=== PATIENT | female | born 1990 | race Caucasian/White ===

== ENCOUNTER 2017-12-27 06:30 | Day surgery (SDC) | payer MEDICAID ==
[2017-12-23 15:16] LABS: BASOPHILS % (AUTO) 0.6 % (0-1); EOSINOPHILS # (AUTO) 0.1 X10'3 (0-0.9); EOSINOPHILS % (AUTO) 1.4 % (0-6); LYMPHOCYTES # (AUTO) 2.2 X10'3 (1.1-4.8); LYMPHOCYTES % (AUTO) 29.8 % (21-51); MEAN CORPUSCULAR HEMOGLOBIN 31.8 PG (27.0-31.0); MEAN CORPUSCULAR HGB CONC 34.4 % (33.0-36.5); MEAN CORPUSCULAR VOLUME 92.7 FL (78-98); MEAN PLATELET VOLUME 8.9 FL (7.4-10.4); MONOCYTES # (AUTO) 0.6 X10'3 (0-0.9); NEUTROPHILS # (AUTO) 4.5 X10'3 (1.8-7.7); NEUTROPHILS % (AUTO) 60.2 % (42-75); PRE OP HEMOGLOBIN 13.4 g/dL (12.0-16.0); PRE OP PLATELET COUNT 203 X10'3 (140-440); RED BLOOD COUNT 4.21 X10'6 (4.20-5.60); RED CELL DISTRIBUTION WIDTH 13.8 % (11.5-14.5)
[2017-12-23 15:43] LABS: HCG SERUM QL NEGATIVE
[2017-12-27] VITALS (8 sets, daily range): BP systolic 114–188; BP diastolic 74–83
[~2017-12-27] VITALS: Ht 170.2 cm; Wt 75.3 kg
[~2017-12-27 06:30] MED LIST: Cefazolin 2GM/50ML dext iso,osmotic IVPB IV ONE; PREN1TAB75 PO; famotidine 20mg tablet PO ONE; ringers solution, lacted 1,000 ML IV SCH
[2017-12-27] MEDS ORDERED: BUPIVAcaine/PF 2.5mg/ml (0.25%) 10ml vial ONE (06:42)
[2017-12-27] MEDS ORDERED: sevoflurane 250ml liquid IH ONE (08:11)
[2017-12-27] MEDS ORDERED: fentaNYL/PF 50MCG/1 ML 2ML syringe ONE (08:13)
[2017-12-27] MEDS ORDERED: midazolam 2 mg/2 ml injection ONE (08:13)
[2017-12-27] MEDS ORDERED: propofol inj 20 ML IV ONE (08:15)
[2017-12-27] MEDS ORDERED: ondansetron/PF 4mg/2ml inj ONE (08:23)
[2017-12-27] MEDS ORDERED: rocuronium 10mg/ml inj IV ONE (08:23)
[2017-12-27] MEDS ORDERED: dexamethasone sod phosphate 4mg/ml inj. ONE (08:24)
[2017-12-27] MEDS ORDERED: epiNEPHrine 1 mg/ml inj SQ ONE (08:35)
[2017-12-27] MEDS ORDERED: ringers solution, lacted 1,000 ML IV SCH (08:39)
[2017-12-27] MEDS ORDERED: proCHLORperazine 10 MG/2 ml inj IV PRN (08:40)
[2017-12-27] MEDS ORDERED: meperidine/PF 25mg/ml syringe IV PRN ×3 (08:40)
[2017-12-27] MEDS ORDERED: ondansetron/PF 4mg/2ml inj IV PRN (08:40)
[2017-12-27] MEDS ORDERED: morphine 4 MG/ML inj SYRINge IV PRN ×2 (08:40)
[2017-12-27] MEDS ORDERED: neostigmine methylsulfate 1 MG/ML 10ml vial ONE (08:49)
[2017-12-27] MEDS ORDERED: glycopyrrolate 0.2mg/ml inj ONE (08:49)
[2017-12-27] MEDS ORDERED: HYDROcodone/acetaminophen 5mg/325mg tablet PO PRN (09:25)
== END 2017-12-27 10:02 | disposition home or self-care (01) ==
LOC: PAS 06:30
PROVIDERS: ATTEND Obstetrics & Gynecology
DX: Z30.2 Encounter for sterilization (principal); J45.998 Other asthma; Z72.0 Tobacco use; Z98.890 Other specified postprocedural states; Z79.899 Other long term (current) drug therapy; Z72.89 Other problems related to lifestyle
CPT/HCPCS: 36415; 58670; 84703; 85025; A6258; A6402; J0171; J0690; J1100; J2175; J2250; J2405; J2704; J2710; J3010; J3490; J7120; A7000

== ENCOUNTER 2018-07-20 22:25 | Emergency (ER) | payer MEDICAID ==
[~2018-07-20] VITALS: Ht 170.2 cm; Wt 65.0 kg
[~2018-07-20 22:25] MED LIST changes: -Cefazolin 2GM/50ML dext iso,osmotic IVPB IV ONE; -famotidine 20mg tablet PO ONE; -ringers solution, lacted 1,000 ML IV SCH
[2018-07-20 22:29] VITALS: BP 133/51
[2018-07-20] MEDS ORDERED: mag hydrox/Alum hydrox/simeth 30ml oral suspension PO ONE ×2 (22:45→22:55)
[2018-07-20] MEDS ORDERED: famotidine 20mg tablet PO ONE (22:55)
[2018-07-20] MEDS ORDERED: LIDOcaine Viscous 15ml cup MM PRN (22:55)
[2018-07-20] MEDS ORDERED: FAMO-128 PO (23:44)
== END 2018-07-21 00:07 | disposition home or self-care (01) ==
LOC: ER 22:26
DX: K29.00 Acute gastritis without bleeding (principal); Z90.710 Acquired absence of both cervix and uterus
CPT/HCPCS: 99284

== ENCOUNTER 2021-09-01 13:14 | Emergency (ER) | payer MEDICAID ==
[~2021-09-01] VITALS: Ht 170.2 cm; Wt 59.0 kg
[~2021-09-01 13:14] MED LIST changes: +FAMO-128 PO
[2021-09-01 13:55] LABS: BASOPHILS % (AUTO) 0.2 % (0-1); EOSINOPHILS % (AUTO) 0.2 % (0-6); HEMATOCRIT 40.7 % (35.0-45.0); HEMOGLOBIN 13.6 g/dl (12.0-16.0); LYMPHOCYTES # (AUTO) 1.7 X10'3 (1.1-4.8); LYMPHOCYTES % (AUTO) 20.8 % (21-51); MEAN CORPUSCULAR HEMOGLOBIN 31.7 PG (27.0-31.0); MEAN CORPUSCULAR HGB CONC 33.4 g/dL (33.0-36.5); MEAN CORPUSCULAR VOLUME 94.7 FL (78-98); MONOCYTES # (AUTO) 0.6 X10'3 (0-0.9); MONOCYTES % (AUTO) 7.6 % (2-12); NEUTROPHILS # (AUTO) 5.7 X10'3 (1.8-7.7); NEUTROPHILS % (AUTO) 71.2 % (42-75); PLATELET COUNT 202 X10'3 (140-440); RED CELL DISTRIBUTION WIDTH 13.6 % (11.5-14.5); WHITE BLOOD COUNT 8.1 X10'3 (4.5-11.0)
[2021-09-01 14:00] LABS: URINE HCG NEGATIVE (NEG)
[2021-09-01 14:03] LABS: COLOR,URINE AMBER (Yellow); GLUCOSE, URINE NEGATIVE (Neg); KETONES,URINE NEGATIVE (Neg); LEUKOCYTE ESTERASE ,URINE NEGATIVE (Neg); NITRITES, URINE NEGATIVE (Neg); OCCULT BLOOD,URINE LARGE (Neg); PH,URINE 6.5 (4.8-8.0); PROTEIN,URINE NEGATIVE (Neg); UA COLLECTION TYPE CLN CATCH MIDSTREAM; UROBILINOGEN,URINE 0.2 E.U/dL (0.2-1.0)
[2021-09-01 14:04] LABS: CLARITY,URINE CLOUDY (Clear)
[2021-09-01 14:08] LABS: BACTERIA,URINE NONE SEEN /HPF (Neg); MUCUS STRANDS FEW /LPF (Neg); RBC,URINE 50-100 /HPF (0-2); SQUAMOUS EPITHELIAL CELL,UR FEW /LPF (FEW); WBC,URINE 0-4 /HPF (0-4)
[2021-09-01 14:13] LABS: ALANINE AMINOTRANSFERASE 17 U/L (12-78); ALBUMIN 4.4 G/DL (3.4-5.0); ALBUMIN/GLOBULIN RATIO 1.3 (1.1-1.5); ALKALINE PHOSPHATASE 52 IU/L (46-116); ANION GAP 12 (8-16); ASPARTATE AMINO TRANSFERASE 10 U/L (10-37); BILIRUBIN,TOTAL 0.4 MG/DL (0.1-1.0); BLOOD UREA NITROGEN 11 MG/DL (7-18); BUN/CREATININE RATIO 16.7 (6.6-38.0); CALCIUM 9.1 MG/DL (8.5-10.1); CHLORIDE 104 MMOL/L (99-107); CREATININE 0.66 MG/DL (0.40-0.90); GLUCOSE 100 MG/DL (70-104); LIPASE 52 U/L (73-393); POTASSIUM 3.6 MMOL/L (3.5-5.1); SODIUM 144 MMOL/L (135-145); TOTAL CARBON DIOXIDE 27.9 MMOL/L (24-32); TOTAL PROTEIN 7.9 G/DL (6.4-8.2); eGFR > 90 ML/MIN
[2021-09-01] MEDS ORDERED: iohexol 300mg/ml 100ml inj. ONE (15:20)
[2021-09-01] MEDS ORDERED: normal saline 1000ml 1,000 ML IV ONE (17:10)
[2021-09-01] MEDS ORDERED: ondansetron/PF 4mg/2ml inj IV ONE (17:10)
[2021-09-01] MEDS ORDERED: morphine 4 MG/ML inj SYRINge IV ONE (17:10)
--- NOTE | 2021-09-01 18:22 | NUR ---
bedside report to maria r mane
[2021-09-01 19:02] VITALS: BP 109/72
== END 2021-09-01 19:08 | disposition home or self-care (01) ==
LOC: ER 13:15
DX: K56.1 Intussusception (principal); R10.32 Left lower quadrant pain; N93.8 Other specified abnormal uterine and vaginal bleeding; Z98.51 Tubal ligation status; Z98.890 Other specified postprocedural states; Z79.899 Other long term (current) drug therapy
CPT/HCPCS: 36415; 74177; 80053; 81001; 81025; 83690; 85025; 96361; 96374; 96375; 99285; J2270; J2405; J7030; Q9967

== ENCOUNTER 2021-09-04 10:24 | Inpatient (IN) | payer MEDICAID ==
[~2021-09-04] VITALS: Ht 170.2 cm; Wt 59.1 kg
[2021-09-04] MEDS ORDERED: normal saline 1000ML IV soln IV ONE (10:40)
[2021-09-04 11:00] LABS: URINE HCG NEGATIVE (NEG)
[2021-09-04 11:03] LABS: BASOPHILS % (AUTO) 0.4 % (0-1); EOSINOPHILS % (AUTO) 0.1 % (0-6); HEMATOCRIT 39.1 % (35.0-45.0); HEMOGLOBIN 13.4 g/dl (12.0-16.0); LYMPHOCYTES % (AUTO) 22.2 % (21-51); MEAN CORPUSCULAR HEMOGLOBIN 32.5 PG (27.0-31.0); MEAN CORPUSCULAR HGB CONC 34.2 g/dL (33.0-36.5); MEAN CORPUSCULAR VOLUME 94.9 FL (78-98); MEAN PLATELET VOLUME 8.6 FL (7.4-10.4); MONOCYTES # (AUTO) 0.4 X10'3 (0-0.9); MONOCYTES % (AUTO) 7.6 % (2-12); NEUTROPHILS # (AUTO) 3.2 X10'3 (1.8-7.7); NEUTROPHILS % (AUTO) 69.7 % (42-75); PLATELET COUNT 199 X10'3 (140-440); RED BLOOD COUNT 4.12 X10'6 (4.20-5.60); RED CELL DISTRIBUTION WIDTH 13.2 % (11.5-14.5); WHITE BLOOD COUNT 4.6 X10'3 (4.5-11.0)
[2021-09-04 11:18] LABS: ALANINE AMINOTRANSFERASE 19 U/L (12-78); ALBUMIN 4.5 G/DL (3.4-5.0); ALBUMIN/GLOBULIN RATIO 1.3 (1.1-1.5); ALKALINE PHOSPHATASE 51 IU/L (46-116); ANION GAP 13 (8-16); ASPARTATE AMINO TRANSFERASE 14 U/L (10-37); BILIRUBIN,TOTAL 0.5 MG/DL (0.1-1.0); BLOOD UREA NITROGEN 10 MG/DL (7-18); BUN/CREATININE RATIO 16.1 (6.6-38.0); CALCIUM 9.2 MG/DL (8.5-10.1); CHLORIDE 105 MMOL/L (99-107); CREATININE 0.62 MG/DL (0.40-0.90); GLUCOSE 107 MG/DL (70-104); SODIUM 144 MMOL/L (135-145); TOTAL CARBON DIOXIDE 26.5 MMOL/L (24-32); TOTAL PROTEIN 8.1 G/DL (6.4-8.2); eGFR > 90 ML/MIN
--- NOTE | 2021-09-04 11:27 | NUR ---
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
[2021-09-04] MEDS ORDERED: ondansetron/PF 4mg/2ml inj IV ONE (11:50)
[2021-09-04] MEDS ORDERED: normal saline 1000ML IV soln IVB ONE (11:50)
[2021-09-04] MEDS ORDERED: proCHLORperazine 10 MG/2 ml inj IV ONE (12:25)
[2021-09-04 13:00] LABS: CLARITY,URINE CLEAR (Clear); COLOR,URINE YELLOW (Yellow); GLUCOSE, URINE NEGATIVE (Neg); KETONES,URINE NEGATIVE (Neg); LEUKOCYTE ESTERASE ,URINE NEGATIVE (Neg); NITRITES, URINE NEGATIVE (Neg); OCCULT BLOOD,URINE LARGE (Neg); PH,URINE 7.5 (4.8-8.0); PROTEIN,URINE NEGATIVE (Neg); UROBILINOGEN,URINE 0.2 E.U/dL (0.2-1.0)
[2021-09-04 13:39] LABS: UA COLLECTION TYPE CLN CATCH MIDSTREAM
[2021-09-04 13:47] LABS: MUCUS STRANDS FEW /LPF (Neg); WBC,URINE 0-4 /HPF (0-4)
[2021-09-04 13:48] LABS: BACTERIA,URINE FEW /HPF (Neg); RBC,URINE NONE SEEN /HPF (0-2); SQUAMOUS EPITHELIAL CELL,UR MODERATE /LPF (FEW); TRANSITIONAL EPI CELLS,URINE FEW /HPF
[2021-09-04] MEDS ORDERED: acetaminophen 325mg tablet PO PRN ×2 (13:50)
[2021-09-04] MEDS ORDERED: magnesium hydroxide 30ml (MOM) UD suspension PO PRN (13:50)
[2021-09-04] MEDS ORDERED: HYDROcodone/acetaminophen 5mg/325mg tablet PO PRN (13:50)
[2021-09-04] MEDS ORDERED: mag hydrox/Alum hydrox/simeth 30ml oral suspension PO PRN (13:50)
[2021-09-04] MEDS: dextrose 5%-1/2 normal saline 1,000 ML IV SCH ×2 (13:50→22:14)
[2021-09-04] MEDS ORDERED: morphine 2 MG/ML inj. syringe IV PRN (13:50)
[2021-09-04] MEDS ORDERED: NO HOME MEDS (13:56)
--- NOTE | 2021-09-04 16:19 | NUR ---
Tried to call report, RN to call back in 5 minutes
--- NOTE | 2021-09-04 16:31 | NUR ---
received report from LUIS GARCIA in ED
--- NOTE | 2021-09-04 16:51 | NUR ---
wilfredo left in room by ER staff, PCT noticed her in the bed. not sure how long she was on the unit. VS stable. Report pain 8/10. Will review meds and orders and give what I can
[2021-09-04 16:53] VITALS: BP 118/60
[2021-09-04] MEDS: morphine 2 MG/ML inj. syringe IV PRN ×2 (16:59→22:13)
--- NOTE | 2021-09-04 18:14 | NUR ---
Problems reprioritized. Patient report given, questions answered & plan of care reviewed with JACKY GARCIA.
[2021-09-04] MEDS: ondansetron/PF 4mg/2ml inj IV PRN (19:07)
[2021-09-04] MEDS: docusate sod 100mg capsule PO SCH (19:07)
[2021-09-04] MEDS ORDERED: diatr meglu/diatrizoate 30ml oral sol.-(3 dose) bottle PO SCH (21:00)
[2021-09-04] MEDS: diatr meglu/diatrizoate 30ml oral sol.-(3 dose) bottle PO SCH (23:41)
[2021-09-05] VITALS: BP 94/54
[2021-09-05] MEDS: dextrose 5%-1/2 normal saline 1,000 ML IV SCH ×2 (04:15→19:50)
[2021-09-05] MEDS: morphine 2 MG/ML inj. syringe IV PRN ×4 (04:19→17:22)
[2021-09-05 05:58] LABS: BASOPHILS % (AUTO) 0.6 % (0-1); EOSINOPHILS # (AUTO) 0.1 X10'3 (0-0.9); EOSINOPHILS % (AUTO) 2.5 % (0-6); HEMATOCRIT 34.1 % (35.0-45.0); HEMOGLOBIN 11.5 g/dl (12.0-16.0); LYMPHOCYTES # (AUTO) 1.3 X10'3 (1.1-4.8); LYMPHOCYTES % (AUTO) 38.9 % (21-51); MEAN CORPUSCULAR HGB CONC 33.9 g/dL (33.0-36.5); MEAN CORPUSCULAR VOLUME 94.4 FL (78-98); MONOCYTES # (AUTO) 0.5 X10'3 (0-0.9); MONOCYTES % (AUTO) 13.8 % (2-12); NEUTROPHILS # (AUTO) 1.5 X10'3 (1.8-7.7); NEUTROPHILS % (AUTO) 44.2 % (42-75); PLATELET COUNT 154 X10'3 (140-440); RED BLOOD COUNT 3.61 X10'6 (4.20-5.60); RED CELL DISTRIBUTION WIDTH 13.2 % (11.5-14.5); WHITE BLOOD COUNT 3.4 X10'3 (4.5-11.0)
[2021-09-05 05:59] LABS: ALBUMIN 3.2 G/DL (3.4-5.0); ANION GAP 10 (8-16); BLOOD UREA NITROGEN 7 MG/DL (7-18); BUN/CREATININE RATIO 11.5 (6.6-38.0); CALCIUM 8.2 MG/DL (8.5-10.1); CHLORIDE 110 MMOL/L (99-107); CREATININE 0.61 MG/DL (0.40-0.90); GLUCOSE 102 MG/DL (70-104); POTASSIUM 3.7 MMOL/L (3.5-5.1); SODIUM 147 MMOL/L (135-145); TOTAL CARBON DIOXIDE 26.6 MMOL/L (24-32); eGFR > 90 ML/MIN
[2021-09-05] MEDS: ondansetron/PF 4mg/2ml inj IV PRN ×2 (07:16→17:22)
[2021-09-05] MEDS: diatr meglu/diatrizoate 30ml oral sol.-(3 dose) bottle PO SCH ×2 (07:17→11:59)
[2021-09-05 08:00] VITALS: BP 108/75
[2021-09-05] MEDS: docusate sod 100mg capsule PO SCH ×2 (08:00→20:15)
--- NOTE | 2021-09-05 08:27 | NUR ---
PAGER ID: [phone] MESSAGE: 350B. Patient reporting blood in urine now. Flory GARCIA [id number]
[2021-09-05 09:44] LABS: CLARITY,URINE CLOUDY (Clear); GLUCOSE, URINE NEGATIVE (Neg); KETONES,URINE NEGATIVE (Neg); LEUKOCYTE ESTERASE ,URINE NEGATIVE (Neg); NITRITES, URINE NEGATIVE (Neg); OCCULT BLOOD,URINE LARGE (Neg); PH,URINE 5.5 (4.8-8.0); PROTEIN,URINE NEGATIVE (Neg); UROBILINOGEN,URINE 0.2 E.U/dL (0.2-1.0)
[2021-09-05 09:51] LABS: COLOR,URINE STRAW (Yellow); SQUAMOUS EPITHELIAL CELL,UR MANY /LPF (FEW); UA COLLECTION TYPE NON-SPECIFIED
[2021-09-05 09:52] LABS: BACTERIA,URINE 1+ /HPF (Neg); RBC,URINE 0-2 /HPF (0-2); WBC,URINE 0-4 /HPF (0-4)
[2021-09-05] MEDS: HYDROcodone/acetaminophen 10/325mg tab PO PRN ×3 (10:39→23:14)
[2021-09-05 11:00] VITALS: BP 108/63
--- NOTE | 2021-09-05 11:33 | NUR ---
PAGER ID: [phone] MESSAGE: 350B. UA resulted positive for occult blood. Flory GARCIA [id number]
[2021-09-05] MEDS ORDERED: iohexol 300mg/ml 100ml inj. ONE (11:58)
[2021-09-05 14:01] LABS: PRE OP PARTIAL THROMB. TIME 27 SECONDS (22-32)
--- NOTE | 2021-09-05 14:05 | NUR ---
PAGER ID: [phone] MESSAGE: 350b. Should I keep patient npo? Flory GARCIA [id number]
--- NOTE | 2021-09-05 15:48 | NUR ---
PAGER ID: [phone] MESSAGE: 350B. Dr. [place] said patient can go home. Patient Is requesting pain medication for home. Flory GARCIA [id number]
[2021-09-05 18:30] VITALS: BP 103/70
--- NOTE | 2021-09-05 18:39 | NUR ---
Problems reprioritized. Patient report given, questions answered & plan of care reviewed with Melchor GARCIA.
[2021-09-06] VITALS: BP 112/63
[2021-09-06] MEDS ORDERED: diphenhydrAMINE 2%/zinc acetate cream TP PRN (01:05)
[2021-09-06] MEDS: dextrose 5%-1/2 normal saline 1,000 ML IV SCH ×2 (04:30→15:50)
[2021-09-06 05:49] LABS: BASOPHILS % (AUTO) 0.5 % (0-1); EOSINOPHILS # (AUTO) 0.1 X10'3 (0-0.9); EOSINOPHILS % (AUTO) 2.4 % (0-6); HEMATOCRIT 35.7 % (35.0-45.0); LYMPHOCYTES # (AUTO) 1.4 X10'3 (1.1-4.8); LYMPHOCYTES % (AUTO) 38.8 % (21-51); MEAN CORPUSCULAR HEMOGLOBIN 31.9 PG (27.0-31.0); MEAN CORPUSCULAR HGB CONC 33.6 g/dL (33.0-36.5); MEAN CORPUSCULAR VOLUME 94.8 FL (78-98); MEAN PLATELET VOLUME 8.9 FL (7.4-10.4); MONOCYTES # (AUTO) 0.4 X10'3 (0-0.9); MONOCYTES % (AUTO) 11.5 % (2-12); NEUTROPHILS # (AUTO) 1.7 X10'3 (1.8-7.7); NEUTROPHILS % (AUTO) 46.8 % (42-75); PLATELET COUNT 164 X10'3 (140-440); RED BLOOD COUNT 3.76 X10'6 (4.20-5.60); RED CELL DISTRIBUTION WIDTH 13.5 % (11.5-14.5); WHITE BLOOD COUNT 3.7 X10'3 (4.5-11.0)
[2021-09-06 05:53] LABS: ALBUMIN 3.2 G/DL (3.4-5.0); ANION GAP 3 (8-16); BLOOD UREA NITROGEN 2 MG/DL (7-18); BUN/CREATININE RATIO 4.1 (6.6-38.0); CHLORIDE 110 MMOL/L (99-107); CREATININE 0.49 MG/DL (0.40-0.90); GLUCOSE 99 MG/DL (70-104); POTASSIUM 3.6 MMOL/L (3.5-5.1); SODIUM 140 MMOL/L (135-145); TOTAL CARBON DIOXIDE 27.4 MMOL/L (24-32); eGFR > 90 ML/MIN
[2021-09-06] MEDS: ondansetron/PF 4mg/2ml inj IV PRN (05:59)
[2021-09-06] MEDS: HYDROcodone/acetaminophen 10/325mg tab PO PRN ×2 (06:04→10:47)
--- NOTE | 2021-09-06 06:14 | NUR ---
Problems reprioritized. Patient report given, questions answered & plan of care reviewed with JENNIFER. Addendum: 09/06/21 at 0614 by Pavel Dexter RN Amended: Links added.
[2021-09-06 07:00] VITALS: BP 104/59
[2021-09-06] MEDS: docusate sod 100mg capsule PO SCH (07:23)
[2021-09-06] MEDS ORDERED: diphenhydrAMINE 2%/zinc acetate cream TP SCH (08:00)
--- NOTE | 2021-09-06 08:46 | NUR ---
Patient in room [facility]. I have received report from JOSE Ruth and had the opportunity to ask questions and assume patient care.
[2021-09-06] MEDS ORDERED: diphenhydrAMINE 25mg capsule PO PRN (09:05)
[2021-09-06] MEDS ORDERED: HYDR-3965 PO (10:31)
[2021-09-06 11:00] VITALS: BP 115/67
--- NOTE | 2021-09-06 12:36 | NUR ---
PAGER ID: [phone] MESSAGE: 350B. Patient tolerating clear liquids, does she still need IV fluids? Flory GARCIA [id number]
--- NOTE | 2021-09-06 13:00 | NUR ---
Patient in room [facility] 350B. I have received report from Trini, student nurse and had the opportunity to ask questions and assume patient care.
--- NOTE | 2021-09-06 14:49 | NUR ---
PAGER ID: [phone] MESSAGE: 350B. Patient is tolerating full liquid diet. Reports minimal pain/no nausea. Flory GARCIA [id number]
--- NOTE | 2021-09-06 15:30 | NUR ---
PAGER ID: [phone] MESSAGE: 350B. Patient would like to go home. Flory GARCIA [id number]
[2021-09-06] MEDS ORDERED: ONDA4TAB12 PO (15:54)
== END 2021-09-06 17:01 | disposition home or self-care (01) | DRG 247 ==
LOC: ER 10:24 → ED HOLD 13:51 → SUR 3N 16:45
PROVIDERS: ADMIT Internal Medicine; ATTEND Internal Medicine
PROC: BW211ZZ Computerized Tomography (CT Scan) of Abdomen and Pelvis using Low Osmolar Contrast (ICD-10-PCS; principal; 2021-09-05)
DX: K56.1 Intussusception (principal); M32.9 Systemic lupus erythematosus, unspecified; F12.90 Cannabis use, unspecified, uncomplicated; K92.1 Melena; F17.220 Nicotine dependence, chewing tobacco, uncomplicated; Z98.51 Tubal ligation status
CPT/HCPCS: 36415; 74177; 80048; 80053; 81001; 81025; 83605; 84145; 85025; 85610; 85730; 87040; 87081; 96361; 96374; 96375; 99285; G0378; J0780; J2270; J2405; J7030; J7042; Q0163; Q9963; Q9967

== ENCOUNTER 2021-10-04 10:24 | Emergency (ER) | payer MEDICAID ==
[~2021-10-04] VITALS: Ht 170.2 cm; Wt 54.5 kg
[~2021-10-04 10:24] MED LIST changes: -FAMO-128 PO; +HYDR-3965 PO; +ONDA4TAB12 PO; -PREN1TAB75 PO
[2021-10-04 10:59] LABS: EOSINOPHILS # (AUTO) 0.1 X10'3 (0-0.9); HEMOGLOBIN 13.7 g/dl (12.0-16.0); MONOCYTES # (AUTO) 0.4 X10'3 (0-0.9); NEUTROPHILS # (AUTO) 2.4 X10'3 (1.8-7.7)
[2021-10-04 11:00] LABS: BASOPHILS % (AUTO) 0.7 % (0-1); EOSINOPHILS % (AUTO) 1.7 % (0-6); HEMATOCRIT 40.3 % (35.0-45.0); LYMPHOCYTES # (AUTO) 1.3 X10'3 (1.1-4.8); LYMPHOCYTES % (AUTO) 31.9 % (21-51); MEAN CORPUSCULAR HEMOGLOBIN 32.2 PG (27.0-31.0); MEAN CORPUSCULAR HGB CONC 34.1 g/dL (33.0-36.5); MEAN CORPUSCULAR VOLUME 94.5 FL (78-98); MEAN PLATELET VOLUME 9.3 FL (7.4-10.4); MONOCYTES % (AUTO) 8.8 % (2-12); NEUTROPHILS % (AUTO) 56.9 % (42-75); PLATELET COUNT 164 X10'3 (140-440); RED BLOOD COUNT 4.27 X10'6 (4.20-5.60); RED CELL DISTRIBUTION WIDTH 13.3 % (11.5-14.5); WHITE BLOOD COUNT 4.1 X10'3 (4.5-11.0)
[2021-10-04 11:14] LABS: APTT 24 SECONDS (22-32)
[2021-10-04] MEDS ORDERED: dicyclomine 10mg/ml 2ml ampule IM ONE (11:15)
[2021-10-04] MEDS ORDERED: ondansetron/PF 4mg/2ml inj IV ONE (11:15)
[2021-10-04] MEDS ORDERED: ketorolac trometh. 30mg/ml inj. IV ONE (11:15)
[2021-10-04 11:16] LABS: ALANINE AMINOTRANSFERASE 21 U/L (12-78); ALBUMIN 4.6 G/DL (3.4-5.0); ALBUMIN/GLOBULIN RATIO 1.4 (1.1-1.5); ALKALINE PHOSPHATASE 49 IU/L (46-116); ANION GAP 9 (8-16); ASPARTATE AMINO TRANSFERASE 14 U/L (10-37); BILIRUBIN,TOTAL 0.2 MG/DL (0.1-1.0); BLOOD UREA NITROGEN 18 MG/DL (7-18); BUN/CREATININE RATIO 27.7 (6.6-38.0); CHLORIDE 104 MMOL/L (99-107); CREATININE 0.65 MG/DL (0.40-0.90); GLUCOSE 99 MG/DL (70-104); LIPASE 209 U/L (73-393); POTASSIUM 4.2 MMOL/L (3.5-5.1); SODIUM 141 MMOL/L (135-145); TOTAL PROTEIN 7.8 G/DL (6.4-8.2); eGFR > 90 ML/MIN
[2021-10-04] MEDS ORDERED: normal saline 1000ml 1,000 ML IV ONE (11:20)
[2021-10-04] MEDS ORDERED: iohexol 300mg/ml 100ml inj. ONE (11:44)
[2021-10-04] MEDS ORDERED: DICY10CA88 PO (13:51)
[2021-10-04] MEDS ORDERED: POLY119P2 PO (13:51)
[2021-10-04] MEDS ORDERED: ONDA8TAB13 PO (13:51)
[2021-10-04 14:15] VITALS: BP 116/74
== END 2021-10-04 14:16 | disposition home or self-care (01) ==
LOC: ER 10:25
DX: R10.30 Lower abdominal pain, unspecified (principal); K62.5 Hemorrhage of anus and rectum; R11.0 Nausea; F12.90 Cannabis use, unspecified, uncomplicated; Z98.51 Tubal ligation status; Z98.890 Other specified postprocedural states; Z79.899 Other long term (current) drug therapy
CPT/HCPCS: 74177; 80053; 83690; 85025; 85610; 85730; 86885; 86900; 86901; 96372; 96374; 96375; 99285; J0500; J1885; J2405; J7030; Q9967